=== PATIENT | male | born 1965 | race Two or more races ===

== ENCOUNTER 2016-03-04 10:50 | Emergency (ER) | payer BC ==
[2016-03-04 11:10] VITALS: BP 144/85; PULSE 73; TEMP 98; BMI 30.8
[2016-03-04] MEDS ORDERED: ONDANSETRON HCL 4 MG ODT TAB PO ONE (11:19)
--- NOTE | 2016-03-04 11:21 | EDPRACDOC ---
- General Information Chief Complaint: Flu-Like Symptoms Stated Complaint: FLU LIKE SYMPTOMS Time Seen by Provider: 03/04/16 11:18 Information Source: Patient, Family Home Medications: Home Medications Benzonatate [Tessalon] 100 mg PO TID #20 capsule 03/04/16 Ketorolac Tromethamine [Toradol] 10 mg PO Q6H PRN #20 tab 03/04/16 Ondansetron [Zofran Odt] 4 mg PO Q6H #14 tab.rapdis 03/04/16 Oseltamivir Phosphate [Tamiflu] 30 mg PO DAILY 03/04/16 Allergies/Adverse Reactions: Allergies Allergy/AdvReac Type Severity Reaction Status Date / Time No Known Allergies Allergy Verified 03/04/16 11:18 - History of Present Illness Onset: 3 weeks HPI: PT STATES DX WITH INFLUENZA ON TUESDAY STILL HAVING SYMPTOMS AND TAKING TAMIFLU. N/V DIZZINESS, COUGH CONGESTION RUNNY NOSE MYALGIAS SOB. 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 Ibuprofen/Acetaminophen (Dose/ Tylenol 0900 Time) ED Past Medical History - History Reviewed Yes Nurses notes reviewed and agree except as marked Travel Outside of [place] in the Last 3 Months?: No - Patient Medical History Cardiac History: Reports: Hypertension, Hypercholesterolemia Psychological History: Denies: Depression Systemic History: Denies: Cancer - Family Medical History Denies: Hypertension, Diabetes, Cancer, Stroke, Cardiac Disorders - Social Medical History Smoking Status: Current some day smoker ETOH: None Substance Abuse: None Lives With: Other Lives In: Home EDM Review of Systems - Review of Systems ROS Negative Except as Marked: Yes All systems reviewed and were negative except as marked Constitutional: Chills, Fever. negative: Fatigue, Loss of Appetite, Weakness Eyes: No Symptoms Reported. negative: Redness, Blurred Vision, Double Vision, Discharge, Pain, Light Sensitive, Photophobia Ears: No Symptoms Reported. negative: Pain, Hearing Loss, Drainage, Ear Pulling Throat: No Symptoms Reported. negative: Pain, Swelling Nose: Congestion, Discharge. negative: Abrasion, Bleeding, Deformity, Ecchymosis, Injection, Laceration, Swelling, Tender Mouth: No Symptoms Reported. negative: Pain, Drooling Respiratory: Cough, Shortness of Breath. negative: Barky Cough, Brassy Cough, Hemoptysis, Wheezing Cardiovascular: No Symptoms Reported. negative: Chest Pain, Palpitations, Syncope, Edema, Orthopnea, PND, Skin Mottling, Cyanosis Gastrointestinal: No Symptoms Reported. negative: Pain, Constipation, Nausea, Vomiting, Diarrhea, Melena, Formula Intolerance Genitourinary: No Symptoms Reported. negative: Dysuria, Hematuria, Frequency, Discharge, Bleeding, Testicular Pain, Neurological: No Symptoms Reported. negative: Headache, Dizziness, Seizure, Numbness, Weakness, Speech Difficulty, Gait Difficulty Musculoskeletal: Chestwall (RIGHT SIDED). negative: Arm, Ankle, Back, Elbow, Forearm, Femur, Foot, Hand, Hip, Knee, Leg, Neck, Pelvis, Ribs, Shoulder, Wrist Integumentary: No Symptoms Reported. negative: Itching, Rash, Bruising, Wound Allergic/Immunologic: No Symptoms Reported. negative: Hives, Itching Hematologic: No Symptoms Reported. negative: Lymphadenopathy, Easy Bruising, Easy Bleeding Endocrine: No Symptoms Reported. negative: Weight Gain, Weight Loss Psychiatric: No Symptoms Reported. negative: Anxiety, Depression, Hallucinations, Insomnia, Suicidal - Physical Exam Constitutional: No apparent distress, Alert (Awake) Oriented to: Time, Person, Place Last recorded Vital Signs: Last Vital Signs Temp 98 F 03/04/16 11:04 Pulse 73 03/04/16 11:04 Resp 16 03/04/16 11:04 BP 144/85 03/04/16 11:04 Pulse Ox 97 03/04/16 11:04 Oxygen Pulse Oxygen Saturation 97 O2 Device Room Air Oxygen Flow Rate Fraction of Inspired Oxygen ( FIO2) - HEENT Head: Normal ( normocephalic) Eye Exam: Normal (PERRL, EOMI, Sclera white) Oropharynx: Normal (Pharynx:Moist without exudate,Gums-no swelling) Tympanic Membrane: Normal ENT EAC: Normal TMJ: Normal Nose: No Symptoms Reported (septum midline) Neck: Normal (FROM, trachea at midline) - Respiratory/Cardiovascular Respiratory: Normal - CTA (BBS clear to auscultation without adventitious sounds ) Cardiovascular: Normal (RRR without murmur, gallop or rub) - GI Auscultation: Normal (NABS) Palpation: Normal (Soft,No rebound or guarding, non distended) Tenderness: Non tender Cardoso's Sign: Negative - Bladder: Normal - Musculoskeletal Back: Normal (Non-Tender) Extremities: Normal (Normal tone, Pulses 2+ No cyanosis or edema, FROM) - Integumentary Skin: Normal, Warm, Dry Lymphatics: Normal (no adenopathy) - Neurologic Memory Impaired: Normal Motor Function: Normal (Normal tone, Pulses 2+ No cyanosis or edema, FROM) Cranial Nerve: Normal (CN II-X11 intact sensation, strength 5/5) Cerebellar: Normal Mood Description: Normal Perception: Normal - Differential Diagnosis Influenza A B, Pneumonia, URI, Viral - Diagnostic Imaging CXR Image interpreted by: Radiologist IMPRESSION: No active disease. Decision Time to Discharge: 12:33 - Departure Disposition: Home Condition: Stable Final Diagnosis: Influenza Instructions: Influenza (ED) Education/Counseling Given To: Patient Education/Counseling Given Regarding: Diagnosis, Treatment, Prognosis, Follow Up Referrals: None,No Provider [Primary Care Provider] - One Week Prescriptions: Benzonatate [Tessalon] 100 mg PO TID #20 capsule Ketorolac Tromethamine [Toradol] 10 mg PO Q6H PRN #20 tab PRN Reason: Pain Ondansetron [Zofran Odt] 4 mg PO Q6H #14 tab.rapdis Additional Instructions: INCREASE PO FLUIDS, CONTINUE TAMIFLU. YOU CAN EXPECT YOUR SYMPTOMS TO LAST APPROX 2 WEEKS.
--- NOTE | 2016-03-04 12:18 | DIRPT ---
CLINICAL DATA: Cough and shortness of breath with right-sided chest pain EXAM: CHEST - 2 VIEW COMPARISON: 02/20/2015 FINDINGS: The heart size and mediastinal contours are within normal limits. Both lungs are clear. The visualized skeletal structures are unremarkable. IMPRESSION: No active disease. Electronically Signed By: Arturo Valera M.D. On: 03/04/2016 12:15
== END 2016-03-04 12:48 | disposition home or self-care (01) ==
LOC: ED 10:50 → EDMC 12:48
DX: J11.1 Influenza due to unidentified influenza virus with other respiratory manifestations (principal); I10 Essential (primary) hypertension; E78.00 Pure hypercholesterolemia, unspecified; Z72.0 Tobacco use
CPT/HCPCS: 71020; 99283; J3490